=== PATIENT | male | born 1965 | race Caucasian/White ===

== ENCOUNTER 2017-06-03 10:04 | Emergency (ER) | payer SELFPAY ==
[2017-06-03 11:24] LABS: BASO # 0.1 K/uL (0.0-0.2); BASO % 0.9 % (0.0-2.0); EOS # 0.5 K/uL (0.0-0.7); EOS % 4.7 % (0.0-4.0); HEMATOCRIT 42.8 % (35.0-51.0); LYMPH # 2.3 K/uL (1.0-4.3); LYMPH % 22.4 % (20.0-40.0); MEAN CELL VOLUME 86.8 fL (80.0-94.0); MEAN CORPUSCULAR HEMOGLOBIN 29.2 pg (27.0-31.0); MEAN CORPUSCULAR HGB CONC 33.6 g/dL (33.0-37.0); MEAN PLATELET VOLUME 8.1 fL (7.2-11.7); MONO # 0.9 K/uL (0.0-0.8); MONO % 9.1 % (0.0-10.0); RED CELL DISTRIBUTION WIDTH 13.3 % (11.5-14.5); WHITE BLOOD COUNT 10.1 K/uL (4.8-10.8)
[2017-06-03 11:33] LABS: CHLORIDE 98 mmol/L (98-107); SODIUM 141 mmol/L (132-148)
[2017-06-03 11:34] LABS: POTASSIUM 4.8 mmol/L (3.6-5.2)
[2017-06-03 11:36] LABS: ALB/GLOB RATIO 1.2 (1.0-2.1); ALKALINE PHOSPHATASE 158 U/L (38-126); AST/SGOT 15 U/L (17-59); BILIRUBIN,TOTAL 0.5 mg/dL (0.2-1.3); BLOOD UREA NITROGEN 15 mg/dL (9-20); CARBON DIOXIDE 29 mmol/L (22-30); GFR AFRICAN-AMERICAN > 60; GLUCOSE,RANDOM 157 mg/dL (75-110); TOTAL PROTEIN 7.8 g/dL (6.3-8.3)
[2017-06-03 11:37] LABS: ALT/SGPT 28 U/L (21-72)
[2017-06-03] MEDS ORDERED: Vancomycin 1 GM 1 GM/250 ML BAG IVPB ONE (12:31)
--- NOTE | 2017-06-03 14:15 | C.PDOC ---
History Of Present Illness A 52 year old male, whose past medical history includes DM, presents to the emergency department for a small abscess on his left knee. The patient reports the abscess began as a pimple and the patient states he picked at it and now it has been growing over the past 4-5 days. The patient denies any fever, chills, nausea, diarrhea, or any other complaints at this time. Time Seen by Provider: 06/03/17 11:02 Chief Complaint (Nursing): Abnormal Skin Integrity History Per: Patient History/Exam Limitations: no limitations Onset/Duration Of Symptoms: Days (x 4-5 days ) Current Symptoms Are (Timing): Worse Past Medical History Vital Signs: Last Vital Signs Temp 98 F 06/03/17 14:45 Pulse 80 06/03/17 14:45 Resp 18 06/03/17 14:45 BP 120/80 06/03/17 14:45 Pulse Ox 97 06/03/17 14:45 - Medical History PMH: Diabetes Denies: Chronic Kidney Disease Family History: States: No Known Family Hx - Social History Hx Tobacco Use: No Hx Alcohol Use: No Hx Substance Use: No - Immunization History Hx Tetanus Toxoid Vaccination: No Hx Influenza Vaccination: No Hx Pneumococcal Vaccination: No Review Of Systems Except As Marked, All Systems Reviewed And Found Negative. Constitutional: Negative for: Fever, Chills Gastrointestinal: Negative for: Nausea, Diarrhea Skin: Positive for: Other (small growing abscess on left knee ) Physical Exam - Physical Exam Appears: Well, Non-toxic, No Acute Distress Skin: Normal Color, Warm, Dry Head: Atraumatic, Normacephalic Eye(s): bilateral: Normal Inspection, PERRL, EOMI Nose: Normal Throat: Normal Neck: Normal Cardiovascular: Rhythm Regular Respiratory: Normal Breath Sounds Gastrointestinal/Abdominal: Normal Exam Back: Normal Inspection Extremity: Normal ROM, Other (left knee 1 cm diamter mildly fluctant abcess; positive erythema; warm to the touch ) ED Course And Treatment - Laboratory Results Result Diagrams: 06/03/17 11:19 06/03/17 11:19 O2 Sat by Pulse Oximetry: 98 Medical Decision Making Medical Decision Making: Treatment Plan: -- Vancomycin -- Blood culture, wound culture -- I&D I preformed an I&D on the patient's left knee. I&D Procedure: Immediately prior to procedure a "time out" was called to verify the correct patient, procedure and site. Procedure: With appropriate anesthesia, the abscess was incised and drained of purulent material under aseptic conditions by me. Wound culture was obtained and sent to lab. Wound packing was inserted and sterile dressing was applied. Disposition - Disposition Referrals: [facility] [Outside] [facility] Francis, [Non-Staff] - Disposition: HOME/ ROUTINE Disposition Time: 12:40 Condition: GOOD Additional Instructions: Thank you for letting us take care of you today. Your provider was Dr. James. You were treated for an abscess. The emergency medical care you received today was directed at your acute symptoms. If you were prescribed any medication, please fill it and take as directed. It may take several days for your symptoms to resolve. Return to the Emergency Department if your symptoms worsen, do not improve, or if you have any other problems. Please contact your doctor or call one of the physicians/clinics you have been referred to that are listed on the Patient Visit Information form that is included in your discharge packet. Bring any paperwork you were given at discharge with you along with any medications you are taking to your follow up visit. Our treatment cannot replace ongoing medical care by a primary care provider (PCP) outside of the emergency department. Thank you for allowing the [facility] team to be part of your care today. Return to the emergency room in 2 days for a wound check. Take antibiotics as directed. Prescriptions: Cephalexin [cephalexin] 500 mg PO Q6 #28 cap Ibuprofen [Motrin] 600 mg PO Q6 PRN #20 tab PRN Reason: Pain, Moderate (4-7) Sulfamethoxazole/Trimethoprim [Bactrim DS 800 mg-160 mg] 1 tab PO BID #14 tab Instructions: Abscess (ED) Forms: [facility] (Lithuanian) - Clinical Impression Clinical Impression: Abscess - Scribe Statement The provider has reviewed the documentation as recorded by the Scribe Abeba White All medical record entries made by the Scribe were at my direction and personally dictated by me. I have reviewed the chart and agree that the record accurately reflects my personal performance of the history, physical exam, medical decision making, and the department course for this patient. I have also personally directed, reviewed, and agree with the discharge instructions and disposition.
[2017-06-03 15:06] VITALS: BP 120/80; PULSE 80; RESP 18; TEMP 98
[2017-06-03 18:21] VITALS: O2SAT 98
== END 2017-06-03 14:50 | disposition home or self-care (01) ==
LOC: C.ER 10:04
DX: L02.416 Cutaneous abscess of left lower limb (principal); B95.62 Methicillin resistant Staphylococcus aureus infection as the cause of diseases classified elsewhere
CPT/HCPCS: 10060; 80053; 85025; 87040; 87070; 87181; 96365; 99284; J7050